=== PATIENT | female | born 1960 | race Caucasian/White ===

== ENCOUNTER 2023-08-24 10:38 | Inpatient (IN) | payer MEDICAID ==
[~2023-08-24] VITALS: Ht 160 cm; Wt 64.6 kg
[2023-08-24 11:00] VITALS: BP_SYST 144; PULSE 103; RESP 18; TEMP 98.3; O2SAT 98
[2023-08-24 11:36] LABS: BASOPHILS % (AUTO) 0.3 % (0.0-2.0); EOSINOPHILS % (AUTO) 0.6 % (0.0-4.0); HEMATOCRIT 30.4 % (36-48); HEMOGLOBIN 10.3 g/dL (12.0-16.0); LYMPHOCYTES # (AUTO) 0.6 K/uL (1.0-5.5); LYMPHOCYTES % (AUTO) 9.3 % (20.5-51.5); MEAN CORPUSCULAR HEMOGLOBIN 33 pg (27-31); MEAN CORPUSCULAR HGB CONC 34 % (32-36); MEAN CORPUSCULAR VOLUME 98 fL (79.0-98.0); MONOCYTES # (AUTO) 0.2 K/uL (0.0-1.0); MONOCYTES % (AUTO) 3.3 % (1.7-9.3); NEUTROPHILS # (AUTO) 5.6 K/uL (1.8-7.7); NEUTROPHILS % (AUTO) 86.5 % (40.0-70.0); PLATELET COUNT (AUTO) 133 K/uL (130-430); RED CELL DISTRIBUTION WIDTH 19.1 % (9.0-15.0); WHITE BLOOD COUNT (AUTO) 6.5 K/uL (4.8-10.8)
[2023-08-24 11:50] LABS: CREATININE 0.8 mg/dL (0.55-1.30); POTASSIUM 4.2 mmol/L (3.5-5.1)
[2023-08-24] MEDS ORDERED: VANCOMYCIN HCL 1000 MG/VIAL IV ONE (13:14)
[2023-08-24] MEDS: VANCOMYCIN HCL 1,000 MG in NS 250 ML IV ONE (13:27)
[2023-08-24] MEDS: NORMAL SALINE 5 ML DISP.SYRIN IVF SCH (13:27)
[2023-08-24] MEDS ORDERED: LETROZOLE PO (13:42)
[2023-08-24] MEDS ORDERED: PANT40TA45 PO (13:42)
[2023-08-24] MEDS ORDERED: AMYL1CAP58 PO (13:42)
[2023-08-24] MEDS ORDERED: LISI-209 PO (13:42)
[2023-08-24] MEDS: PIPERACILLIN/TAZO 3.375 GM in NS 50 ML IV ONE (16:30)
[2023-08-24] MEDS ORDERED: PIPERACILLIN/TAZOBACTAM 3.375 GM/VIAL (ZOSYN) IV ONE (16:38)
[2023-08-24] MEDS ORDERED: ACETAMINOPHEN 500 MG TABLET PO PRN (19:15)
[2023-08-24] MEDS ORDERED: NALOXONE HCL 2 MG/2 ML SYR IVP PRN (19:15)
[2023-08-24] MEDS ORDERED: HYDROcodone/ACETAMIN 5-325 MG TAB (NORCO/ VICODIN) PO PRN ×2 (19:15→23:30)
[2023-08-24] MEDS: HYDROcodone/ACETAMIN 10-325 MG TAB PO PRN (19:38)
[2023-08-24 22:14] VITALS: BP_SYST 115; PULSE 101; RESP 18; TEMP 97.2; O2SAT 98
[2023-08-24] MEDS ORDERED: ONDANSETRON HCL 4 MG/2 ML VIAL IVP PRN (23:30)
[2023-08-24] MEDS ORDERED: LORazepam 2 MG/ML VIAL IVP PRN (23:30)
[2023-08-24] MEDS ORDERED: HYDROcodone/ACETAMIN 10-325 MG TAB PO PRN (23:30)
[2023-08-25] VITALS: BP_SYST 122; PULSE 98; RESP 18; TEMP 97.6; O2SAT 98
[2023-08-25] MEDS: PIPERACILLIN/TAZOBACTAM 3.375 GM/VIAL (ZOSYN) IV ONE (01:28)
[2023-08-25] MEDS: PIPERACILLIN/TAZO 3.375/DEX-IS 50 ML IV SCH (01:33)
[2023-08-25 05:42] LABS: BASOPHILS % (AUTO) 0.2 % (0.0-2.0); EOSINOPHILS # (AUTO) 0.1 K/uL (0.0-0.4); EOSINOPHILS % (AUTO) 0.2 % (0.0-4.0); HEMATOCRIT 27.2 % (36-48); LYMPHOCYTES # (AUTO) 0.9 K/uL (1.0-5.5); LYMPHOCYTES % (AUTO) 3.3 % (20.5-51.5); MEAN CORPUSCULAR HEMOGLOBIN 33 pg (27-31); MEAN CORPUSCULAR HGB CONC 33 % (32-36); MEAN CORPUSCULAR VOLUME 98 fL (79.0-98.0); MONOCYTES # (AUTO) 0.3 K/uL (0.0-1.0); MONOCYTES % (AUTO) 1.1 % (1.7-9.3); NEUTROPHILS # (AUTO) 25.7 K/uL (1.8-7.7); NEUTROPHILS % (AUTO) 95.2 % (40.0-70.0); PLATELET COUNT (AUTO) 116 K/uL (130-430); RED BLOOD CELL COUNT(AUTO) 2.77 MIL/uL (4.2-6.2); RED CELL DISTRIBUTION WIDTH 19.3 % (9.0-15.0)
[2023-08-25] MEDS: NORMAL SALINE 5 ML DISP.SYRIN IVF SCH (06:00)
[2023-08-25] MEDS: PANTOPRAZOLE SODIUM 40 MG TAB PO SCH (06:00)
[2023-08-25 06:08] LABS: ALBUMIN 2.5 g/dL (3.4-4.8); CALCIUM 8.2 mg/dL (8.4-11.0); CREATININE 0.76 mg/dL (0.55-1.30); POTASSIUM 4.2 mmol/L (3.5-5.1); TOTAL BILIRUBIN 0.9 mg/dL (0.0-1.0); TOTAL PROTEIN, SERUM 6.1 g/dL (6.4-8.3)
[2023-08-25 07:00] VITALS: O2SAT 98
[2023-08-25 08:00] VITALS: BP_SYST 102; PULSE 96; RESP 18; TEMP 99.2; O2SAT 98
[2023-08-25] MEDS: lisinopriL 5 MG TABLET PO SCH (08:17)
[2023-08-25 11:04] VITALS: BP_SYST 105; PULSE 100; RESP 16; TEMP 97.3; O2SAT 97
[2023-08-25] MEDS: LIPASE/PROTEASE/AMYLASE 1 CAP PO ONE (12:07)
[2023-08-25] MEDS: LIPASE/PROTEASE/AMYLASE 1 CAP PO SCH (16:25)
[2023-08-25 16:36] VITALS: BP_SYST 112; PULSE 90; RESP 16; TEMP 97.9; O2SAT 96
[2023-08-25] MEDS: FLUCONAZOLE IN NACL,ISO-OSM 200 ML IV SCH (18:15)
[2023-08-25 20:00] VITALS: BP_SYST 96; PULSE 96; RESP 17; TEMP 98.4; O2SAT 96
[2023-08-25] MEDS: ACETAMINOPHEN 500 MG TABLET PO PRN (20:33)
[2023-08-25] MEDS ORDERED: FLUCONAZOLE 200 mg/ NS 200 ML IV ONE (20:54)
[2023-08-26 04:00] VITALS: BP_SYST 99; PULSE 83; RESP 18; TEMP 97.7; O2SAT 97
[2023-08-26 05:05] LABS: CALCIUM 8.1 mg/dL (8.4-11.0); CREATININE 0.88 mg/dL (0.55-1.30); POTASSIUM 4.3 mmol/L (3.5-5.1)
[2023-08-26 05:06] LABS: BASOPHILS % (AUTO) 0.2 % (0.0-2.0); EOSINOPHILS # (AUTO) 0.1 K/uL (0.0-0.4); EOSINOPHILS % (AUTO) 0.4 % (0.0-4.0); HEMATOCRIT 25.4 % (36-48); HEMOGLOBIN 8.5 g/dL (12.0-16.0); LYMPHOCYTES # (AUTO) 0.9 K/uL (1.0-5.5); LYMPHOCYTES % (AUTO) 3.1 % (20.5-51.5); MEAN CORPUSCULAR HEMOGLOBIN 33 pg (27-31); MEAN CORPUSCULAR HGB CONC 34 % (32-36); MEAN CORPUSCULAR VOLUME 98 fL (79.0-98.0); MONOCYTES # (AUTO) 0.1 K/uL (0.0-1.0); MONOCYTES % (AUTO) 0.5 % (1.7-9.3); NEUTROPHILS % (AUTO) 95.8 % (40.0-70.0); PLATELET COUNT (AUTO) 123 K/uL (130-430); RED BLOOD CELL COUNT(AUTO) 2.59 MIL/uL (4.2-6.2); RED CELL DISTRIBUTION WIDTH 18.9 % (9.0-15.0); WHITE BLOOD COUNT (AUTO) 28.2 K/uL (4.8-10.8)
[2023-08-26 05:10] LABS: ERYTHROCYTE SEDIMENTATION RATE 14 MM/HR (0-20)
[2023-08-26 07:00] VITALS: O2SAT 99
[2023-08-26 08:00] VITALS: BP_SYST 123; PULSE 92; RESP 18; TEMP 96.8; O2SAT 99
[2023-08-26 11:07] VITALS: BP_SYST 114; PULSE 92; RESP 14; TEMP 97.5; O2SAT 100
[2023-08-26 16:11] VITALS: BP_SYST 114; PULSE 90; RESP 15; TEMP 97.5; O2SAT 100
[2023-08-26] MEDS: NYSTATIN 500,000 UNITS/5 ML UDC PO SCH (17:43)
[2023-08-26 20:00] VITALS: BP_SYST 97; PULSE 91; RESP 18; TEMP 97.8; O2SAT 98
[2023-08-27 04:00] VITALS: BP_SYST 102; PULSE 72; RESP 18; TEMP 97.8; O2SAT 97
[2023-08-27 07:09] LABS: BASOPHILS # (AUTO) 0.1 K/uL (0.0-0.2); BASOPHILS % (AUTO) 0.3 % (0.0-2.0); EOSINOPHILS # (AUTO) 0.2 K/uL (0.0-0.4); EOSINOPHILS % (AUTO) 0.6 % (0.0-4.0); HEMATOCRIT 27.3 % (36-48); LYMPHOCYTES # (AUTO) 0.8 K/uL (1.0-5.5); LYMPHOCYTES % (AUTO) 3.1 % (20.5-51.5); MEAN CORPUSCULAR HEMOGLOBIN 33 pg (27-31); MEAN CORPUSCULAR HGB CONC 33 % (32-36); MEAN CORPUSCULAR VOLUME 99 fL (79.0-98.0); MONOCYTES # (AUTO) 0.1 K/uL (0.0-1.0); MONOCYTES % (AUTO) 0.5 % (1.7-9.3); NEUTROPHILS # (AUTO) 24.4 K/uL (1.8-7.7); NEUTROPHILS % (AUTO) 95.5 % (40.0-70.0); PLATELET COUNT (AUTO) 167 K/uL (130-430); RED BLOOD CELL COUNT(AUTO) 2.77 MIL/uL (4.2-6.2); RED CELL DISTRIBUTION WIDTH 18.9 % (9.0-15.0); WHITE BLOOD COUNT (AUTO) 25.5 K/uL (4.8-10.8)
[2023-08-27 07:22] LABS: ERYTHROCYTE SEDIMENTATION RATE 30 MM/HR (0-20)
[2023-08-27 07:39] LABS: ALBUMIN 2.5 g/dL (3.4-4.8); CALCIUM 7.8 mg/dL (8.4-11.0); CREATININE 0.85 mg/dL (0.55-1.30); POTASSIUM 4.4 mmol/L (3.5-5.1); TOTAL BILIRUBIN 0.6 mg/dL (0.0-1.0); TOTAL PROTEIN, SERUM 6.6 g/dL (6.4-8.3)
[2023-08-27 08:00] VITALS: BP_SYST 117; PULSE 102; RESP 18; TEMP 97.4; O2SAT 99
[2023-08-27 12:00] VITALS: BP_SYST 124; PULSE 102; RESP 18; TEMP 97.5; O2SAT 100
[2023-08-27] MEDS: MICAFUNGIN SODIUM 100 MG in NS 100 ML IV SCH (15:43)
[2023-08-28] VITALS (7 sets, daily range): BP systolic 114–134; PULSE 77–97; RESP 16–18; TEMP 97.1–98.8; O2SAT 97–98
[2023-08-28 06:59] LABS: BASOPHILS % (AUTO) 0.2 % (0.0-2.0); EOSINOPHILS # (AUTO) 0.1 K/uL (0.0-0.4); EOSINOPHILS % (AUTO) 0.6 % (0.0-4.0); HEMATOCRIT 26.4 % (36-48); LYMPHOCYTES # (AUTO) 0.5 K/uL (1.0-5.5); LYMPHOCYTES % (AUTO) 3.1 % (20.5-51.5); MEAN CORPUSCULAR HEMOGLOBIN 33 pg (27-31); MEAN CORPUSCULAR HGB CONC 34 % (32-36); MEAN CORPUSCULAR VOLUME 98 fL (79.0-98.0); MONOCYTES # (AUTO) 0.3 K/uL (0.0-1.0); MONOCYTES % (AUTO) 1.5 % (1.7-9.3); NEUTROPHILS # (AUTO) 16.7 K/uL (1.8-7.7); NEUTROPHILS % (AUTO) 94.6 % (40.0-70.0); PLATELET COUNT (AUTO) 164 K/uL (130-430); RED CELL DISTRIBUTION WIDTH 18.1 % (9.0-15.0); WHITE BLOOD COUNT (AUTO) 17.7 K/uL (4.8-10.8)
[2023-08-28 07:10] LABS: ERYTHROCYTE SEDIMENTATION RATE 30 MM/HR (0-20)
[2023-08-28 07:18] LABS: CALCIUM 8.5 mg/dL (8.4-11.0); POTASSIUM 4.5 mmol/L (3.5-5.1)
[2023-08-29 01:18] VITALS: BP_SYST 117; PULSE 96; RESP 15; TEMP 97.2; O2SAT 98
[2023-08-29 08:00] VITALS: BP_SYST 126; PULSE 96; RESP 16; TEMP 97.4; O2SAT 98
[2023-08-29 08:06] LABS: BASOPHILS # (AUTO) 0.1 K/uL (0.0-0.2); BASOPHILS % (AUTO) 0.4 % (0.0-2.0); EOSINOPHILS % (AUTO) 0.3 % (0.0-4.0); HEMATOCRIT 28.5 % (36-48); HEMOGLOBIN 9.5 g/dL (12.0-16.0); LYMPHOCYTES # (AUTO) 0.8 K/uL (1.0-5.5); LYMPHOCYTES % (AUTO) 5.2 % (20.5-51.5); MEAN CORPUSCULAR HEMOGLOBIN 33 pg (27-31); MEAN CORPUSCULAR HGB CONC 33 % (32-36); MEAN CORPUSCULAR VOLUME 97 fL (79.0-98.0); MONOCYTES # (AUTO) 0.7 K/uL (0.0-1.0); NEUTROPHILS # (AUTO) 13.3 K/uL (1.8-7.7); NEUTROPHILS % (AUTO) 89.1 % (40.0-70.0); PLATELET COUNT (AUTO) 163 K/uL (130-430); RED BLOOD CELL COUNT(AUTO) 2.93 MIL/uL (4.2-6.2); RED CELL DISTRIBUTION WIDTH 18.5 % (9.0-15.0); WHITE BLOOD COUNT (AUTO) 14.9 K/uL (4.8-10.8)
[2023-08-29 08:27] LABS: CALCIUM 8.9 mg/dL (8.4-11.0); CREATININE 1.04 mg/dL (0.55-1.30); POTASSIUM 4.5 mmol/L (3.5-5.1)
[2023-08-29 12:00] VITALS: BP_SYST 134; PULSE 105; RESP 16; TEMP 97.2; O2SAT 99
[2023-08-29 16:00] VITALS: BP_SYST 134; PULSE 94; RESP 16; TEMP 97.6; O2SAT 98
[2023-08-29 20:00] VITALS: BP_SYST 142; PULSE 60; RESP 18; TEMP 97.5; O2SAT 94
[2023-08-30] VITALS (7 sets, daily range): BP systolic 122–130; PULSE 72–85; RESP 18–20; TEMP 97.2–98.2; O2SAT 97–99
[2023-08-30 07:40] LABS: CALCIUM 8.8 mg/dL (8.4-11.0); CREATININE 0.98 mg/dL (0.55-1.30); POTASSIUM 4.2 mmol/L (3.5-5.1)
[2023-08-30 08:19] LABS: HEMATOCRIT 26.5 % (36-48); HEMOGLOBIN 8.9 g/dL (12.0-16.0); MEAN CORPUSCULAR HEMOGLOBIN 33 pg (27-31); MEAN CORPUSCULAR HGB CONC 34 % (32-36); PLATELET COUNT (AUTO) 137 K/uL (130-430); RED BLOOD CELL COUNT(AUTO) 2.69 MIL/uL (4.2-6.2); RED CELL DISTRIBUTION WIDTH 18.3 % (9.0-15.0); WHITE BLOOD COUNT (AUTO) 18.4 K/uL (4.8-10.8)
[2023-08-30 08:31] LABS: MEAN CORPUSCULAR VOLUME 99 fL (79.0-98.0)
[2023-08-30 11:37] LABS: BAND % (MANUAL) 17 % (0-6); LYMPHOCYTES % (MANUAL) 8 % (20-46)
[2023-08-30 11:38] LABS: ANISOCYTOSIS 1+; ATYPICAL LYMPHOCYTES % 6 % (0-0); BASOPHILS % (MANUAL) 0 % (0-2); EOSINOPHILS % (MANUAL) 0 % (0-7); HYPOCHROMASIA 1+; MONOCYTES % (MANUAL) 6 % (0-11); PLATELET ESTIMATE ADEQUATE (ADEQUATE); WBC MORPHOLOGY TOXIC VACUOLATION
[2023-08-31] VITALS: BP_SYST 131; PULSE 79; RESP 19; TEMP 97.6; O2SAT 98
[2023-08-31 03:59] LABS: ERYTHROCYTE SEDIMENTATION RATE 24 MM/HR (0-20)
[2023-08-31 04:11] LABS: CALCIUM 8.7 mg/dL (8.4-11.0); CREATININE 1.03 mg/dL (0.55-1.30); POTASSIUM 4.1 mmol/L (3.5-5.1)
[2023-08-31 04:12] LABS: BASOPHILS % (AUTO) 0.2 % (0.0-2.0); EOSINOPHILS # (AUTO) 0.2 K/uL (0.0-0.4); EOSINOPHILS % (AUTO) 0.6 % (0.0-4.0); HEMATOCRIT 26.3 % (36-48); HEMOGLOBIN 8.7 g/dL (12.0-16.0); LYMPHOCYTES # (AUTO) 1.5 K/uL (1.0-5.5); LYMPHOCYTES % (AUTO) 6.2 % (20.5-51.5); MEAN CORPUSCULAR HEMOGLOBIN 33 pg (27-31); MEAN CORPUSCULAR HGB CONC 33 % (32-36); MEAN CORPUSCULAR VOLUME 98 fL (79.0-98.0); MONOCYTES # (AUTO) 1.8 K/uL (0.0-1.0); MONOCYTES % (AUTO) 7.3 % (1.7-9.3); NEUTROPHILS # (AUTO) 21.2 K/uL (1.8-7.7); NEUTROPHILS % (AUTO) 85.7 % (40.0-70.0); PLATELET COUNT (AUTO) 144 K/uL (130-430); RED BLOOD CELL COUNT(AUTO) 2.68 MIL/uL (4.2-6.2); RED CELL DISTRIBUTION WIDTH 18.5 % (9.0-15.0); WHITE BLOOD COUNT (AUTO) 24.7 K/uL (4.8-10.8)
[2023-08-31 08:05] VITALS: O2SAT 99
[2023-08-31 11:23] VITALS: BP_SYST 129; PULSE 99; RESP 17; TEMP 98.4
== END 2023-08-31 15:57 | disposition left against medical advice (07) | DRG 720 ==
LOC: SED 10:38 → SMU 13:36
PROVIDERS: ADMIT Preventive Medicine Preventive Medicine/Occupational Environmental Medicine; ATTEND Preventive Medicine Preventive Medicine/Occupational Environmental Medicine
DX: A41.9 Sepsis, unspecified organism (principal); E43 Unspecified severe protein-calorie malnutrition; D69.6 Thrombocytopenia, unspecified; E83.51 Hypocalcemia; E88.09 Other disorders of plasma-protein metabolism, not elsewhere classified; D64.9 Anemia, unspecified; K12.30 Oral mucositis (ulcerative), unspecified; J01.00 Acute maxillary sinusitis, unspecified; R73.9 Hyperglycemia, unspecified; Z85.3 Personal history of malignant neoplasm of breast; Z85.07 Personal history of malignant neoplasm of pancreas; Z68.25 Body mass index [BMI] 25.0-25.9, adult; Z79.899 Other long term (current) drug therapy; K05.219 Aggressive periodontitis, localized, unspecified severity; K05.10 Chronic gingivitis, plaque induced; Z53.29 Procedure and treatment not carried out because of patient's decision for other reasons; R74.01 Elevation of levels of liver transaminase levels
CPT/HCPCS: 36415; 70487; 80048; 80053; 83605; 85007; 85025; 85027; 85651; 87040; 96365; 96367; 99285; J1450; J2248; J2543; J3370; Q9967